=== PATIENT | female | born 1940 | race Caucasian/White ===

== ENCOUNTER → 2018-02-13 | Outpatient (CLI) | payer OTHER | LOC: CIMAGING 10:19 | PROVIDERS: ATTEND Family Medicine | DX: Z12.31 Encounter for screening mammogram for malignant neoplasm of breast (principal) ==

== ENCOUNTER 2018-08-14 16:16 | Inpatient (IN) | payer OTHER ==
[2018-08-14] MEDS ORDERED: NS 500 ML IV ONE (16:42)
[2018-08-14 16:48] LABS: PLATELET COUNT 288 10^3/uL (150-400)
--- NOTE | 2018-08-14 17:01 | EDPHY ---
H & P Stated Complaint: Syncope Time Seen by Provider: 08/14/18 16:42 HPI/ROS: CHIEF COMPLAINT: Syncope HISTORY OF PRESENT ILLNESS: 78-year-old female with CAD s/p cardiac stent presents after a syncopal episode. She was hiking just prior to arrival when she began to feel woozy and then had a witnessed syncopal episode. She struck the back of her head on the ground. Vomiting x2 after the incident. Just prior to the syncopal episode she felt more short of breath than usual, but did not have chest pain. Prior cardiac symptom was syncope. REVIEW OF SYSTEMS: complete 10 point ROS reviewed and is negative except for the noted elements in the HPI - Personal History Current Tetanus/Diphtheria Vaccine: Unsure Current Tetanus Diphtheria and Acellular Pertussis (TDAP): Unsure - Medical/Surgical History Hx Asthma: No Hx Chronic Respiratory Disease: No Hx Diabetes: No Hx Cardiac Disease: No Hx Renal Disease: No Hx Cirrhosis: No Hx Alcoholism: No Hx HIV/AIDS: No Hx Splenectomy or Spleen Trauma: No Other PMH: PMH: HTN; LUMBAR SPINAL STENOISIS;S/P HYST; Stent x1 - Social History Smoking Status: Former smoker Alcohol Use: Sober Drug Use: None Additional Social History: - Physical Exam Exam: General Appearance: Alert, pleasant Eyes: Pupils equal and round, no conjunctival pallor or injection ENT, Mouth: Mucous membranes moist Neck: Normal inspection no midlines tenderness, ROM without pain Respiratory: no chest wall tenderness, Lungs are clear to auscultation Cardiovascular: Regular rate and rhythm Gastrointestinal: Abdomen is soft and nontender Neurological: Alert, oriented x3, cranial nerves II through XII intact, motor 5 /5, sensory intact to light touch Skin: Warm and dry, no rash Extremities: Nontender, no pedal edema Psychiatric: Mood and affect normal Constitutional: Initial Vital Signs Temperature (C) 36.4 C 08/14/18 16:21 Heart Rate 73 08/14/18 16:21 Respiratory Rate 18 08/14/18 16:21 Blood Pressure 187/70 H 08/14/18 16:21 O2 Sat (%) 99 08/14/18 16:21 O2 Delivery Mode Room Air Allergies/Adverse Reactions: Horse/Equine Containing Products [Horse/Equine Product Derivatives] Allergy ( Verified 06/02/12 13:29) Penicillins Allergy (Verified 06/02/12 13:29) procaine HCl [From Novocain] Allergy (Verified 06/02/12 13:29) Sulfa (Sulfonamide Antibiotics) [Sulfa(Sulfonamide Antibiotics)] Allergy ( Verified 06/02/12 13:29) Home Medications: Medication Instructions Recorded Calcium Carb W/Vit D [Calcium Carb 1 each PO DAILY 06/01/16 W/Vit D 500/200 (*)] Multivitamins [Multivitamin (*)] 1 each PO DAILY 06/01/16 Losartan Potassium [Cozaar 50 mg 50 mg PO DAILY 06/26/16 (*)] Nebivolol HCl [Bystolic 5 mg (*)] 5 mg PO DAILY #30 tab 08/23/16 Aspirin [Aspirin 81mg (*)] 81 mg PO DAILY 08/14/18 Epinastine 0.05% [Elestat 0.05%] 1 drops EACHEYE DAILY 08/14/18 Famotidine [Pepcid 20 MG (*)] 20 mg PO DAILY 08/14/18 Furosemide [Lasix 20 MG (*)] 10 mg PO Q2D 08/14/18 Furosemide [Lasix 20 MG (*)] 20 mg PO Q2D 08/14/18 Triamcinolone Acetonide [Nasacort] 1 spray NS DAILY 08/14/18 Acetaminophen [Tylenol 325mg (*)] 650 mg PO Q6HRS PRN tab 08/16/18 Medical Decision Making - Diagnostics Imaging Results: Head CT 08/14/18 16:43 Impression: Moderate senescent features, with no acute acute abnormality identified on this unenhanced CT evaluation. If there is further clinical concern regarding the patient's symptoms, MR imaging is suggested, if not otherwise contraindicated. Findings were discussed with JOSE ALBERTO CASTANON MD at 17:11, on 08/14/2018. Imaging: Discussed imaging studies w/ at home independent call center agent Radiologist, I viewed and interpreted images myself ED Course/Re-evaluation: This patient presents with exertional syncope, concerning for ACS, especially since syncope is her anginal equivalent. Stat EKG reveals no evidence of ischemia or dysrhythmia and initial troponin is normal. CT head ordered because of fall, CHI in elderly pt. 1900: continues to have some nausea, declines nausea meds. Neuro exam remains intact. supervisor paper coating reveals NSR throughout. Results d/w pt, including CT scan, will admit for further cardiac eval. The hospitalist service was consulted for admission. Differential Diagnosis: includes though not limited to ACS, CVA, hypoglycemia, hypoxia, ICH, PE - Data Points Laboratory Results: Laboratory Results 08/14/18 16:16 08/15/18 07:25 Medications Given: Discontinued Medications Acetaminophen (Tylenol) 650 mg PO Q6HRS PRN PRN Reason: Pain, Mild/Fever, Can Take PO Stop: 02/11/19 01:01 Last Admin: 08/16/18 02:17 Dose: 650 mg Hydrocodone Bitart/Acetaminophen ([place] 5/325) 1 tab PO Q4HRS PRN PRN Reason: Pain, Moderate Able to Take PO Stop: 08/24/18 23:53 Last Admin: 08/16/18 08:04 Dose: 1 tab Aspirin (Aspirin) 81 mg PO DAILY [facility] Stop: 02/11/19 08:59 Last Admin: 08/16/18 08:06 Dose: 81 mg Aspirin Buffered (Aspirin Ec) 325 mg PO ONCALL ONE Stop: 08/15/18 15:33 Last Admin: 08/15/18 18:25 Dose: Not Given Bacitracin (Bacitracin 1000 Ml Irrigation) 50,000 units IRR ONCALL ONE Stop: 08/15/18 15:33 Last Admin: 08/15/18 18:26 Dose: Not Given Calcium/Vitamin D (Calcium Carb W/Vit D) 500 mg PO DAILY [facility] Stop: 02/11/19 08:59 Last Admin: 08/16/18 08:06 Dose: 500 mg Diazepam (Valium) 5 mg PO ONCALL ONE Stop: 08/15/18 15:33 Last Admin: 08/15/18 18:26 Dose: Not Given Diphenhydramine HCl (Benadryl) 25 mg PO ONCALL ONE Stop: 08/15/18 15:33 Last Admin: 08/15/18 18:26 Dose: Not Given Epinastine HCl (Elestat 0.05%) 1 drops EACHEYE DAILY [facility] Stop: 02/11/19 08:59 Last Admin: 08/16/18 08:09 Dose: 1 drop Famotidine (Pepcid) 20 mg PO DAILY DARRYN Stop: 02/11/19 08:59 Last Admin: 08/16/18 08:06 Dose: 20 mg Famotidine (Pepcid) 20 mg PO ONCALL ONE Stop: 08/15/18 15:33 Last Admin: 08/15/18 16:43 Dose: Not Given Fluticasone Propionate (Flonase Nasal [place]) 1 sprays EACHNARE DAILY DARRYN Stop: 02/11/19 08:59 Last Admin: 08/16/18 08:11 Dose: Not Given Furosemide (Lasix) 10 mg PO Q2D DARRYN Stop: 02/11/19 08:59 Last Admin: 08/15/18 09:58 Dose: 10 mg Furosemide (Lasix) 20 mg PO Q2D DARRYN Stop: 02/12/19 08:59 Last Admin: 08/16/18 08:06 Dose: 20 mg Sodium Chloride (Ns) 500 mls @ 1,000 mls/hr IV EDNOW ONE PRN Reason: Protocol Stop: 08/14/18 17:11 Last Admin: 08/14/18 16:49 Dose: 500 mls Sodium Chloride (Ns) 1,000 mls @ 0 mls/hr IV ONCALL ONE PRN Reason: TKO Stop: 08/15/18 15:33 Last Admin: 08/15/18 16:44 Dose: Not Given Vancomycin/Sodium Chloride (Vancomycin 1 Gm (Premix)) 250 mls @ 250 mls/hr IV ONCALL ONE Stop: 08/15/18 16:59 Last Admin: 08/15/18 18:27 Dose: Not Given Losartan Potassium (Cozaar) 50 mg PO BID DARRYN Stop: 02/10/19 23:44 Last Admin: 08/15/18 22:51 Dose: Not Given Losartan Potassium (Cozaar) 50 mg PO BID DARRYN Stop: 02/11/19 21:59 Last Admin: 08/16/18 08:05 Dose: 50 mg Multivitamins (Tab-A-Meenakshi) 1 each PO DAILY DARRYN Stop: 02/11/19 08:59 Last Admin: 08/16/18 08:06 Dose: 1 each Nebivolol (Bystolic) 5 mg PO DAILY DARRYN Stop: 02/11/19 08:59 Last Admin: 08/16/18 08:05 Dose: 5 mg Oxymetazoline HCl (Afrin Nasal [place]) 2 sprays EACHNARE BID PRN PRN Reason: CONGESTION/BLOCKED NOSE Stop: 02/11/19 21:29 Last Admin: 08/15/18 21:59 Dose: 2 puffs Point of Care Test Results: Chemistry 08/15/18 08/14/18 15:07 18:21 POC Glucose 134 mg/dL H mg/dL (70-100) POC Troponin I 0.03 ng/mL ng/mL (0.00-0.08) Departure - Departure Disposition: [facility] Inpatient Acute Clinical Impression: Syncope Qualifiers: Syncope type: unspecified Qualified Code(s): R55 - Syncope and collapse Condition: Fair
--- NOTE | 2018-08-14 19:54 | PDGENHP ---
History and Physical History and Physical: Chief complaint: passed out History of present illness: The patient is a 78yo F presented following a syncopal episode that occurred after she started hiking at [place]. She felt woozy and then passed out in front of her . She was unconscious for 2-3 minutes according to her , but when she recovered she knew where she was. She had hit her head and her tailbone during the fall. She had a similar a few years ago which resulted in workups including an abnormal stress test that led to coronary stent placement. Patient does not believe she was dehydrated or under increased stress today. Past medical history: CAD s/p stent, lumbar DJD, HTN, migraines, lisinopril, sulfa, lactose, chlorthalidone, carvedilol, bisoprolol, amlodipine, novocaine, statins. Past surgical history: CHERRY/BSO. Medications: please see med rec form. Allergies: PCN, equine products, procaine, Social history: , lives w/ . Denies smoking or drug use. Drinks 1- 2 servings of wine daily. Family history: [place] (brother 48yo, father 80yo, mother 83yo), angina, HTN, CHF, HLD, TIA, asthma, colon cancer Certified Credit Counselor - Brendan Quan APN. PCP - Adenike Lopez MD. Review of systems: 10 point review of systems was conducted and is negative except per HPI Physical exam: Vitals: Reviewed General: The patient is an elderly female who is A&Ox3 and in no acute distress. HEENT: normocephalic, extraocular movements intact, conjunctivae clear, no lesions on face or pinnae. Nares and oral mucosa pink and moist. Neck: trachea midline, no visible masses, no external lesions. No carotid bruits bilaterally. CV: +S1/S2, reg rate and rhythm. No murmurs/rubs/gallops. Resp: unlabored breathing, lungs clear to auscultation w/o rales, rhonchi, or wheezing. Abd: soft and nondistended, bowel sounds present. Nontender to palpation throughout. Musculoskeletal: Normal muscle tone and bulk. Neuro: cranial nerves II - XII grossly intact. Intact gross motor and sensory function. Psych: appropriate mood/affect. Skin: No rash or petechiae. Heme/lymph: No peripheral edema. Labs: Troponin I 0.03. Sodium 131. Glucose 113. Other Data: EKG: Rate 60, sinus rhythm, age-indeterminate anteroseptal infarct. Personally interpreted. CT of head without contrast: Moderate senescent features, with no acute abnormality identified on this unenhanced CT evaluation. Impression and plan: Syncope DDx - cardiogenic, vasovagal, neurogenic, orthostatic. Suspect cardiogenic based on Hx. CAD Sacral pain, 2/2 fall Cephalgia Mechanical fall Hyponatremia, mild -check Carotid US -check Echo. -monitor on telemetry. -Trend troponins. -check AM labs. -Consider cardiac consult or stress test in AM. -Continue aspirin. Pt does not tolerate statins. -VTE ppx - ambulatory. -Observation status.
--- NOTE | 2018-08-14 21:00 | CPEKG ---
Test Reason : OPEN Blood Pressure : / mmHG Vent. Rate : 058 BPM Atrial Rate : 058 BPM P-R Int : 233 ms QRS Dur : 102 ms QT Int : 436 ms P-R-T Axes : 075 061 060 degrees QTc Int : 429 ms Sinus rhythm Prolonged MN interval Probable anteroseptal infarct, old Confirmed by Mary Walls ([id number]) on 08/14/2018 9:00:28 PM Referred By: Confirmed By:Mary Walls
[2018-08-14] MEDS ORDERED: HYDROCODONE/APAP 5/325 TAB PO PRN (23:54)
[2018-08-14] MEDS ORDERED: ACETAMINOPHEN/ASA/CAFFEINE 1 EACH TAB PO PRN (23:54)
[2018-08-15] MEDS: LOSARTAN POTASSIUM 50 MG TAB PO SCH ×3 (00:50→22:51)
[2018-08-15] MEDS: ACETAMINOPHEN 325 MG TAB PO PRN ×2 (01:22→21:58)
[2018-08-15] MEDS ORDERED: FUROSEMIDE 20 MG TAB PO SCH (09:00)
[2018-08-15] MEDS ORDERED: LOSARTAN POTASSIUM 50 MG TAB PO SCH (09:00)
[2018-08-15] MEDS: NEBIVOLOL HCL 5 MG TAB PO SCH (09:57)
[2018-08-15] MEDS: FAMOTIDINE 20 MG TAB PO SCH (09:57)
[2018-08-15] MEDS: CALCIUM CARB W/VIT D 500 MG TAB PO SCH (09:57)
[2018-08-15] MEDS: ASPIRIN 81 MG CHEWABLE TAB PO SCH (09:57)
[2018-08-15] MEDS: MULTIVITAMINS 1 EACH TAB PO SCH (09:57)
[2018-08-15] MEDS: FLUTICASONE NASAL 120 SPRAYS/16 GM MDI EACHNARE SCH (09:58)
[2018-08-15] MEDS: EPINASTINE 0.05% 5 ML OPHT.BTL EACHEYE SCH (10:02)
--- NOTE | 2018-08-15 12:28 | GCON ---
CARDIOLOGY CONSULTATION. REFERRING PHYSICIAN: Dr. Arango PRIMARY CARE PHYSICIAN: Dr. Sandie Mejia. PRIMARY MARINA PORTER: Brendan Quan, nurse practitioner. REASON FOR CONSULTATION: We were asked by Dr. Arango to evaluate the patient for an episode of synco pe. HISTORY OF PRESENT ILLNESS: The patient is a 78-year-old female with a past medical history signific ant for CAD, status post PTCA and stenting to the LAD, dyslipidemia, intolerant of statins, hypertens ion, anxiety disorder, and degenerative disk disease. She reports she has been in her usual state of health. She has felt well. No chest pains, dyspnea, PND, orthopnea, palpitations, presyncope, or s yncope. She and her were out yesterday and had gone to [facility], and they were about to start walking up the paved road that is on an incline. She had just walked a few steps when she s tarted feeling woozy and proceeded to syncopize. She fell backwards onto her coccyx and back of her head with mild injury. She denies any loss of bowel or bladder control. She denies any antecedent p alpitations, chest pain, shortness of breath, or tunneling of vision. The episode of syncope was virgil ef, and she was oriented upon awakening. PAST MEDICAL HISTORY: 1. Anemia. 2. Anxiety disorder. 3. History of basal cell carcinoma. 4. CAD. 5. Chronic rhinitis. 6. Depression. 7. Hypertension. 8. Dyslipidemia. ALLERGIES: Amlodipine, calero peppers, bisoprolol, carvedilol, chlorthalidone, horse and equine produc t derivatives, lactose, lisinopril, Novocain, penicillins, and sulfonamides. PAST SURGICAL HISTORY: TAHBSO. SOCIAL HISTORY: Patient is , and her , [place]io, is present in the room. She reports daily alcohol intake. She is a never smoker. FAMILY HISTORY: Brother had an ND at age 48, Father at age 80, Mother at age 83. REVIEW OF SYSTEMS: As per HPI. A complete 10-point review of systems was obtained and is negative, except for what is dictated. MEDICATIONS: Outpatient medications include famotidine, aspirin, triamcinolone, Bystolic, multivitam in, losartan, furosemide q.2 days, and calcium. PHYSICAL EXAMINATION: VITAL SIGNS: Blood pressure 160/61, heart rate 54, respirations 13, O2 satura tion 96%, temp of 97.5 degrees Fahrenheit. GENERAL: She is a very pleasant female in no apparent di stress. HEENT: Head is normocephalic, atraumatic. Eyes are without scleral icterus. Mucous membra cory are moist. HEART: Regular rate and rhythm, with no rubs, gallops, or murmurs. LUNGS: Clear to auscultation. ABDOMEN: Soft, nontender, nondistended. SKIN: Warm and dry, without edema present. PSYCH: Normal mood and affect. NEURO: No focal deficits detected. LABORATORY DATA: CBC with WBC 5.04, hemoglobin 13.4, hematocrit 40.1, platelet count of 288. BMP wi th sodium 134, potassium 4.1, chloride 104, CO2 24, BUN 11, creatinine 0.6, glucose of 90. Point of care troponin was 0.03, followed by 0.046, followed by 0.032. A 12-lead ECG from 08/14/2018, leslye elizabeth interpreted shows sinus rhythm with first-degree AV block and LVH by voltage. Carotid Dopplers r eviewed show mild nonobstructive carotid disease. 08/14/2018, head CT shows moderate senescent featur es with no acute abnormalities identified. Patient is new to me. I have reviewed Brendan Quan's last notes. I have talked to Dr. Arango. I have talked to Dr. Glynn about plan of care. Telemetry reviewed, shows sinus rhythm with occasional PVCs. IMPRESSION AND PLAN: The patient is a 78-year-old female who presents for syncope. 1. Syncope. She reports this was her presenting symptom back in 2016 preceding a percutaneous coron fay intervention to her left anterior descending artery. She has no evidence of ischemia on her EKG currently. Options were reviewed with the patient, and our plan of care will be to proceed to a nucl ear treadmill stress test for further evaluation. 2. Coronary artery disease. She has normal EKG and a minimally elevated troponin that has now nury lized. 3. Hypertension. Blood pressure does not appear to be well controlled. She lists allergies to mult iple medications. Her blood pressure does not appear optimally controlled. This may be situational hypertension. We will follow further as an inpatient and then in the outpatient setting. 4. Dyslipidemia. She has listed statins as an allergy. Her last LDL was measured to be 62 on 05/21. 5. More recommendations to follow further testing. /[id number]/MODL
--- NOTE | 2018-08-15 12:42 | ASMTCMCOM ---
CM Note CM Note Notes: 08/15/2018 Case Management Note Discussed pt during rounds. Pt admitted after episode of syncope. Met w/pt. OLMOS signed. There are no case management d/c needs identified d/t pt age, marital status and independence with ADL's prior to admission. PT is recommending home independent. Case Management d/c poc: independent with follow up as directed. Case Management available if needs change. Date Signed: 08/15/2018 12:42 PM Electronically Signed By:Luz Elena Prado RN
--- NOTE | 2018-08-15 12:59 | ECHO ---
[email or web address] [address] [address] Main: [phone] Fax: [email or web address] Echocardiogram Name: ERINN YEE MR#: [id number] Study Date: 08/15/2018 Study Time: 08:38 AM Date of : 1940 Age: 78 year(s) Height: 167.6 cm (66 in.) Weight: 74.84 kg (165 lb.) BSA: 1.84 m2 Gender: Female Examination: Echo Indication: Cardiac: syncope Image Quality: Contrast: Requested by: Lisbeth Izaguirre BP: 147 mmHg/66 mmHg Heart Rate: Rhythm: Normal sinus rhythm with ectopy Indication: Cardiac: syncope Procedure Staff Well Digger: Keith Ferraro RDCS Reading Physician: Camilo Chavez MD Requesting Provider: Conclusions: Normal size left ventricle. Normal global systolic LV function. EF is 74 %. The mitral valve is normal in appearance. There is no significant mitral valve regurgitation. Aortic valve is not well visualized. Mild to moderate aortic valve regurgitation. No aortic valve stenosis is present. Right Ventricular systolic pressure is measured at 36 mmHg. No pericardial effusion. No old studies for comparison. Measurements: Chambers Valvular Assessment AV/MV Valvular Assessment TV/PV Normal Normal Normal Name Value Range Name Value Range Name Value Range Ao Lilliana (MM): 2.6 cm (2.2 cm-3.7 AV Vmax: 1.46 m/s (1 m/s-1.7 TR Vmax: 2.77 mm/s ( - ) cm) m/s) TR PGmax: 31 mmHg ( - ) IVSd (2D): 0.8 cm (0.6 cm-1.1 AV maxP mmHg ( - ) syst. PAP: 36 mmHg ( - ) cm) LVOT Vmax: 1.24 m/s (0.7 m/s-1.1 PV Vmax: 0.79 m/s (0.6 m/s-0.9 LVDd (2D): 4.8 cm (3.9 cm-5.3 m/s) m/s) cm) AR (PHT): 593 ms ( - ) PV PGmax: 2 mmHg ( - ) LVDs (2D): 2.7 cm (2.1 cm-4 MV E Vmax: 0.70 m/s ( - ) cm) MV A Vmax: 0.89 m/s ( - ) LVPWd (2D): 0.8 cm ( - ) MV E/A: 0.79 ( - ) LVEF (2D): 74 (>=54 %) Continued Measurements: Chambers Valvular Assessment AV/MV Valvular Assessment TV/PV Patient: ERINN YEE Study Date: 08/15/2018 Page 1 of 2 08:38 AM Name Value Name Value Name Value LADs Lon.6 cm MV E' Septal: 0.06 m/s CVP (est.): 5 mmHg LA Area: 17.4 cm2 MV E/E' Septal: 11.70 LA Volume: 51 ml MV E/E' Lateral: 11.50 LA Volume Index: 27.7 ml/m2 AR Vmax: 3.41 cm/s Findings: Left Ventricle: Normal size left ventricle. No LV hypertrophy. Normal global systolic LV function. EF is 74 %. No regional wall motion abnormality. Right Ventricle: Normal size right ventricle. Normal RV function. Left Atrium: The left atrium is normal in size. Right Atrium: The right atrium is normal in size. Mitral Valve: The mitral valve is normal in appearance. There is no significant mitral valve regurgitation. No mitral stenosis is present. Aortic Valve: Aortic valve is not well visualized. Mild to moderate aortic valve regurgitation. No aortic valve stenosis is present. Tricuspid Valve: The tricuspid valve appears normal. Trivial tricuspid valve regurgitation. The pulmonary artery pressure is normal. Right Ventricular systolic pressure is measured at 36 mmHg. Pulmonic Valve: The pulmonic valve is normal in appearance and function. There is no pulmonic regurgitation seen. Aorta: The aorta is normal. Pericardium: No pericardial effusion. Exam Comments: (No Signature Object) Patient: ERINN YEE Study Date: 08/15/2018 Page 2 of 2 08:38 AM [id number]
[2018-08-15] MEDS ORDERED: REGADENOSON 0.4 MG/5 ML SYR IVP ONE (14:04)
--- NOTE | 2018-08-15 15:21 | HOSPPROG ---
Hospitalist Progress Note Assessment/Plan: Impression and plan: Syncope 2/2 heart block given syncopal event during treadmill stress test today where 2:1 block was seen. CAD Sacral pain, 2/2 fall Cephalgia Mechanical fall Hyponatremia, mild - Plan for PPM placement today per Cardiology - Defer to cardiology if ischemic eval to be performed prior to PPM placement -monitor on telemetry. -Continue aspirin. Pt does not tolerate statins. -VTE ppx - ambulatory. -Pending clinical course Subjective: Patient reporting feeling well this morning. She had another syncopal event during treadmill stress test this afternoon where she went into heart block. Objective: Vital Signs Temp Pulse Resp BP Pulse Ox 36.4 C 54 L 13 162/61 H 96 08/15/18 11:16 08/15/18 11:16 08/15/18 11:16 08/15/18 11:16 08/15/18 11:16 Laboratory Results 08/15/18 07:25 08/14/18 08/15/18 08/16/18 05:59 05:59 05:59 Intake Total 1000 Output Total 2100 Balance -1100 - Physical Exam Constitutional: no apparent distress Eyes: PERRL Ears, Nose, Mouth, Throat: moist mucous membranes Cardiovascular: regular rate and rhythym Respiratory: no respiratory distress Gastrointestinal: soft, non-tender abdomen Skin: warm Neurologic: AAOx3 Psychiatric: interacting appropriately ICD10 Worksheet Patient Problems: Problems Problem Status Onset Syncope Acute Facial contusion Acute
[2018-08-15] MEDS ORDERED: DIAZEPAM 5 MG TAB PO ONE (15:32)
[2018-08-15] MEDS ORDERED: ASPIRIN EC 325 MG TAB PO ONE (15:32)
[2018-08-15] MEDS ORDERED: FAMOTIDINE 20 MG TAB PO ONE (15:32)
[2018-08-15] MEDS ORDERED: BACITRACIN IRRIGATION/NS 50,000 UNITS/1,000 ML BTL IRR ONE (15:32)
[2018-08-15] MEDS ORDERED: diphenhydrAMINE 25 MG CAP PO ONE (15:32)
[2018-08-15] MEDS ORDERED: NS 1,000 ML IV ONE (15:32)
--- NOTE | 2018-08-15 15:49 | PDPROPOC ---
Sedation Plan of Care Sedation Plan of Care: vital signs stable, mental status noted, patient educated of risks, benefits, alternatives, patient can tolerate sedation ASA Classification: ASA 2 Planned drugs: fentanyl, midazolam Mallampati Score: Class 2 Mallampati Reference Image: Patient passed 3-3-2 rule?: Yes
--- NOTE | 2018-08-15 15:50 | PDCARST ---
CAR Stress Test Results Type of Stress Test: Nuclear TM stress test- stress test aborted Indication: syncope Description of Procedure: After informed consent was obtained, pt was exercised according to Steve Protocol. Monitoring was performed with standard stress nondestructive tester electrode placement. Vital signs were monitored according to protocol throughout the procedure. STRESS EKG AND HEMODYNAMIC DATA. Exercise time: 5: 12 min. This is equivalent to: 5 METS. Resting heart rate: 59 bpm. Resting blood pressure: 120/76 mmHg. Resting O2 saturation: %. Peak heart rate: 110 bpm. This is 75 % of age predicted maximum heart rate response. Peak blood pressure: 160/80 mmHg. Exercise O2: 92 %. Reason for termination: The test was stopped due to heart block. Symptoms: syncope. STRESS TEST ANALYSIS. Baseline ECG: SR. Stress ECG: sinus with 1 mm flat STD tat went into 2:1 heart block and then sinus exit block. Blood pressure: Normal blood pressure response to exercise. Impression: IMPRESSIONS: Stress ECG equivocal for ischemia. Sinus exit block resulted in syncope for which a code was called. Patient quickly regained consciousness. Conclusion: Abnormal stress test with sinus exit block, syncope, ECG changes. Pt will proceed to [facility] and likely pacemaker to follow.
[2018-08-15] MEDS ORDERED: fentaNYL 100 MCG/2 ML INJ ONE ×2 (15:52→16:45)
[2018-08-15] MEDS ORDERED: LIDOCAINE 1% 300 MG/30 ML SDV ONE ×2 (15:52→16:45)
[2018-08-15] MEDS ORDERED: IOPAMIDOL (ISOVUE-370) 150 ML BTL IV ONE ×2 (15:53→18:28)
[2018-08-15] MEDS ORDERED: MIDAZOLAM 2 MG/2 ML VIAL ONE ×3 (15:53→17:58)
[2018-08-15] MEDS ORDERED: VANCOMYCIN HCL/NORMAL SALINE 250 ML IV ONE (16:00)
[2018-08-15 16:32] LABS: INR 0.99 (0.83-1.16); PROTIME(PATIENT) 13.3 SEC (12.0-15.0)
[2018-08-15] MEDS ORDERED: IOPAMIDOL (ISOVUE-300) 50 ML VIAL ONE (16:45)
[2018-08-15] MEDS ORDERED: LIDO/EPI 1% **for epidural** 30 ML SDV ONE (16:46)
[2018-08-15] MEDS ORDERED: BUPIVACAINE 0.5% 30 ML SDV ONE (16:46)
--- NOTE | 2018-08-15 17:14 | PDMN ---
Medical Necessity Medical necessity: [employer] [facility] [employer] M340 Syncope: 78 yo w/ initial c/o syncope. Intially OBS for workup, cardiology consulted. Stress test performed w/ abn results w/ 2: 1 heart block then sinus exit block, syncope, ECG changes. Pt will proceed with L heart cath and pacer to follow. Will require additional MN for ongoing procedures and cardiac monitoring. Meets [employer] [facility] IP criteria for syncope w/ cardiac finding resulting in prolonged tele monitoring and immediate intervention (AICD placement). Hx CAD s/p stent, HTN. Change to IP status @1616 per MD order.
[2018-08-15] MEDS ORDERED: OXYCODONE/APAP 5/325 TAB PO PRN (18:42)
[2018-08-15] MEDS ORDERED: ATROPINE SULFATE 1 MG/10 ML SYR IVP PRN (18:44)
[2018-08-15] MEDS ORDERED: NITROGLYCERIN 0.4 MG BTL SL PRN (18:44)
[2018-08-15] MEDS ORDERED: OXYMETAZOLINE 30 ML NASAL SPRAY EACHNARE PRN (21:30)
[2018-08-15] MEDS: LOSARTAN POTASSIUM 25 MG TAB PO SCH (21:57)
[2018-08-16] MEDS: ACETAMINOPHEN 325 MG TAB PO PRN (02:17)
--- NOTE | 2018-08-16 05:28 | CPIP ---
DATE OF PROCEDURE: 08/15/2018 PROCEDURES: 1. Coronary angiography. 2. Left ventriculography. INDICATION: 1. Known coronary artery disease, status post stenting of left anterior descending coronary artery. 2. Syncope. 3. Abnormal stress test. ACCESS: Patient was prepped and draped in sterile fashion. 1% lidocaine was used to anesthetize the right inguinal region. A 6-Czech introducer sheath was placed selectively into the right common fe moral artery via modified Seldinger technique. A 5-Czech introducer sheath was placed selectively i nto the right common femoral vein via modified Seldinger technique. CORONARY ANGIOGRAPHY: A 6-Czech JL4 was advanced to the left main coronary artery and images obtain ed. The left main coronary artery was short and gave rise to the left anterior descending coronary a rtery and the circumflex coronary artery. The left main coronary artery appeared normal. The left a nterior descending coronary artery gave rise to 1 prominent diagonal branch as well as several smalle r diagonal branches. The left anterior descending coronary artery was previously stented in the mid segment. The previously placed stent was widely patent with mild in-stent restenosis. The circumfle x coronary artery was a large-sized vessel. The circumflex coronary artery gave rise to 2 OM branche s. The circumflex coronary artery and its OM branches appeared free of any significant disease. A 6 -Czech JR4 was advanced to the right coronary artery and images obtained. The right coronary artery was dominant. The right coronary artery appeared normal. LEFT VENTRICULOGRAPHY: A 6-Czech pigtail catheter was advanced in the left ventricle and images obt ained. The left ventricle was normal in size. Left ventricular systolic function appeared to be nor mal. However, imaging was suboptimal secondary to hand injection. The left ventricular end-diastoli c pressure was mildly elevated at 18 mmHg. TEMPORARY PACEMAKER PLACEMENT: A temporary pacemaker was placed via the right common femoral vein. The temporary pacemaker was advanced into the right ventricle and capture obtained. The temporary pa cemaker was set at a rate of 40 beats per minute. COMPLICATIONS: None. CONCLUSIONS: 1. Patent left anterior descending stent. 2. Mild coronary artery disease without flow limitation. 3. Status post successful placement of a temporary pacemaker. /[id number]/MODL
--- NOTE | 2018-08-16 06:24 | CPIP ---
DATE OF PROCEDURE: 08/15/2018 INDICATIONS: The patient is a pleasant 78-year-old female admitted with syncope. She had a stress t est during which she developed complete heart block associated with syncope. PROCEDURE: Implantation of a dual-chamber pacemaker. TECHNIQUE: Following informed consent and in the fasting state and after administration of prophylac tic antibiotics, the patient was brought to the cardiac catheterization laboratory. The left chest w as prepped and draped in usual sterile fashion. 2% lidocaine was infiltrated in the skin below the l eft clavicle. A 3 cm incision was made in the skin. This was carried down to the prepectoral fascia where a pacemaker pocket was fashioned. A venogram was performed, identifying a widely patent axill fay subclavian vein. Using the modified Seldinger technique, access was gained to the axillary vein at the level of the first rib. This was performed a 2nd time and two 0.035 J-wires were positioned i n the axillary vein and visualized across the midline into the superior vena cava. Using the first o f these wires, a 6-Yoruba SafeSheath was placed. The right ventricular lead was brought to the field and under fluoroscopy, positioned well within the right ventricular apex. The lead was screwed into place and the sheath torn away. Capture and sensing were tested and was noted to be excellent. The lead was subsequently secured to the pacemaker pocket floor using 0 Ethibond. Using the remaining s heaths, the atrial lead was brought to the field. Under fluoroscopy, this was passed to the right at [facility]. The lead was positioned in the right atrial appendage and screwed into place. The lead was te sted with excellent capture and sensing. The sheath was then torn away and the lead secured to the p acemaker pocket floor using 0 Ethibond. At this point, the pocket was inspected. All bleeders were cauterized. The pocket was irrigated with antibiotic-containing solution. The device was brought to the field. Both leads were identified by serial number and affixed to the header according to manuf acturer guidelines. The device and the redundant portions of both leads were then placed in the pock et. The pocket was then closed in 3 layers initially using 2 layers of interrupted suture with 2-0 a nd 3-0 Vicryl, and finally running 4-0 Vicryl for the skin. Steri-Strips and a dry dressing were alonzo lied. DEVICE INFORMATION: The pacemaker is a Biotronik Edora 8 DR-T model number [id number], serial #[id number]. The atrial lead is a Biotronik Solia S45, model number 680475, serial #[id number]. Ventricular lead is a Biotronik Solia S53, model number 034253, serial #[id number]. In the atrium capture was 1 V at 0.4 millisecond with lead impedance of 448 ohms, and P-wave sensed a t 3.9 mV. In the ventricle, sensed R-waves were 12.1 mV with capture 0.6 V at 0.4 msec. The impedan ce of 702 ohms. COMPLICATIONS: None. DISPOSITION: The patient will be transferred back to her room on telemetry. Her care will be contin ued per her primary team. /[id number]/MODL
[2018-08-16 07:17] VITALS: BP 179/77
[2018-08-16] MEDS: LOSARTAN POTASSIUM 25 MG TAB PO SCH (08:05)
[2018-08-16] MEDS: NEBIVOLOL HCL 5 MG TAB PO SCH (08:05)
[2018-08-16] MEDS: ASPIRIN 81 MG CHEWABLE TAB PO SCH (08:06)
[2018-08-16] MEDS: MULTIVITAMINS 1 EACH TAB PO SCH (08:06)
[2018-08-16] MEDS: FAMOTIDINE 20 MG TAB PO SCH (08:06)
[2018-08-16] MEDS: CALCIUM CARB W/VIT D 500 MG TAB PO SCH (08:06)
[2018-08-16] MEDS: EPINASTINE 0.05% 5 ML OPHT.BTL EACHEYE SCH (08:09)
[2018-08-16] MEDS: FLUTICASONE NASAL 120 SPRAYS/16 GM MDI EACHNARE SCH (08:11)
[2018-08-16] MEDS ORDERED: FUROSEMIDE 20 MG TAB PO SCH (09:00)
--- NOTE | 2018-08-16 12:44 | ASDISCHSUM ---
Discharge Information Plan Status:Home with No Needs Medically Cleared to Leave:08/15/2018 Discharge Date:08/16/2018 11:53 AM CM D/C Disposition:Home, Routine, Self-Care ADT D/C Disposition:Home, Routine, Self-Care Projected Discharge Date:08/16/2018 11:53 AM Transportation at D/C: Discharge Delay Reason: Follow-Up Date:08/16/2018 11:53 AM Discharge Slot: Final Diagnosis: Placement Information Patient Contact Information Contact Name:JEANNIE Relationship: Address:[address] [place] [address] City:[facility] Phone: [facility] Code:[place] [address] Email: Financial Information Financial Class:Medicare Primary Plan Desc:MEDICARE OUTPATIENT Primary Plan Number:[id number] Secondary Plan Desc: [employer] CLAIMS Secondary Plan Number:[id number] Assessment Information LACE LACE Length of stay for Answers: Less than 1 day current admission Acuity / Level of Answers: Yes Care: Did the patient have an inpatient admission? Comorbidities - select Answers: Coronary Artery Disease all that apply # of Emergency department Answers: 1-2 visits in the last 6 months Score: 6 Date Signed: 08/16/2018 12:42 PM Electronically Signed By:Luz Elena Prado RN [facility] CM Progress Note CM Note CM Note Notes: 08/15/2018 Case Management Note Discussed pt during rounds. Pt admitted after episode of syncope. Met w/ptOlena OLMOS signed. There are no case management d/c needs identified d/t pt age, marital status and independence with ADL's prior to admission. PT is recommending home independent. Case Management d/c poc: independent with follow up as directed. Case Management available if needs change. Date Signed: 08/15/2018 12:42 PM Electronically Signed By:Luz Elena Prado RN Case Management Discharge Plan Note Case Management Discharge Discharge Order Complete? Answers: Yes Patient to Obtain Answers: via Family Medications Transportation Arranged Answers: Family/Friends Discharge Comments Notes: Pt to discharge independent with follow up as directed. Date Signed: 08/16/2018 12:43 PM Electronically Signed By:Luz Elena Prado RN Intervention Information Intervention Type:No Admission Order Date of Service:08/15/2018 09:51 AM Patient Type:Observation Staff Member:Sridevi Brock Hours: Discipline: Severity: Comment:Dmitriy Intervention Type:*OLMOS-Signed Date of Service:08/15/2018 12:26 PM Patient Type:Observation Staff Member:HAYES Prado Hillary Hours: Discipline: Severity: Comment:
--- NOTE | 2018-08-16 14:02 | PDDCSUM ---
Discharge Summary Discharge Summary: Date of Admission: 08/15/2018 Date of Discharge: 08/16/2018 Consults: Cardiology Procedures: Treadmill Stress Test, LHC, PPM Placement Followup: PCP, Cardiology Hospital Course Problem List: Syncope - Patient had repeat syncopal event during treadmill stress test where 2:1 block was seen. CAD Sacral pain, 2/2 fall Cephalgia Mechanical fall Hyponatremia, mild - S/p PPM placement on 08/15 - LHC performed prior to PPM placement which showed patent LAD, mild CAD -Continue aspirin. Pt does not tolerate statins. Time spent on discharge was >35 minutes with >50% of time spent on patient education and counseling.
--- NOTE | 2018-08-17 06:18 | CPEKG ---
Test Reason : OPEN Blood Pressure : / mmHG Vent. Rate : 062 BPM Atrial Rate : 063 BPM P-R Int : 240 ms QRS Dur : 098 ms QT Int : 430 ms P-R-T Axes : 081 054 053 degrees QTc Int : 437 ms Sinus rhythm Prolonged OK interval Anteroseptal infarct Confirmed by Filippo Bhakta ([id number]) on 08/17/2018 6:17:32 AM Referred By: Confirmed By:Filippo Bhakta
--- NOTE | 2018-08-17 10:45 | GDS ---
ADMIT DIAGNOSES: 1. Syncope. 2. Known coronary artery disease. DISCHARGE DIAGNOSES: 1. Syncope. 2. Placement of permanent pacemaker for 3rd degree heart block. 3. Coronary artery disease with past percutaneous coronary intervention of the left anterior descend ing. COURSE OF HOSPITALIZATION: This nice lady came through the emergency room after having a syncopal ep isode at home. She was worked up for syncope, having known coronary artery disease. She was set up for cardiac nuclear stress test. Unfortunately, during the test she went into third-degree heart blo ck and syncope. She was then taken to the cardiac laborer livestock where no obstructive disease was found. A temporary pacemaker was placed. Dr. Emmanuel Glynn then intervened and implanted a permanent pacemak er with no complications. She has been up and ambulating and feels much better this morning. She lucas s had no chest pain, shortness of breath or syncopal episodes. Her pacemaker site is intact with no bleeding. She does have some reddened area right below the incision site. There is no drainage. Dorian pandya did have tenderness through the night and was given analgesics, which did help. This morning she h as taken Tylenol, and this is sufficient for pain relief. Her pacemaker was checked this morning and is functioning properly. Additionally, she had a chest x-ray done that showed small bilateral effus ions. Otherwise, pacer wires were in place appropriately. At this time, she is stable for discharge. ALLERGIES: She is allergic to penicillins. MEDICATIONS: She will go home on multivitamin 1 tablet daily, calcium with vitamin D 1 tablet daily, Cozaar 50 mg daily, Bystolic 5 mg daily, Nasacort spray 1 spray each naris daily, Lasix 20 mg every 2 days, Lasix 10 mg every other day, aspirin 81 mg daily, Elestat 0.05% eyedrops 1 drop each eye doretha y, Pepcid 20 mg daily, Tylenol 325 mg 1-2 tablets every 6 hours as needed for pain not to exceed 3000 mg daily. PHYSICAL EXAMINATION: VITAL SIGNS: On day of discharge, blood pressure 170/66, heart rate 63, tempe rature 36.7. Pacemaker is functioning normal. CARDIAC: Heart rate is regular. No murmurs, rubs, gallops. CHEST: Lungs sounds are clear to auscultation. No wheezes, rales, or rhonchi. EXTREMITIES: No peripheral edema. The pacemaker site in left pectoral area is intact with no bleedi ng. She does have mild tenderness at this site. Groin site is intact with no bleeding or tenderness . INVESTIGATIONS DONE DURING THIS VISIT: 08/23/2018, head CT: Reason for testing, she syncopized and hit the back of her head. Test done to rule out acute intracranial abnormality. Impression: Moderate senescent features with no acute abnormality identified. Carotid Doppler bilateral study done on 08/23/2018, impression: 1. No evidence of flow-limiting carotid stenosis. 2. Velocities correlate to less than 50% diameter stenosis of the origin of the right internal carot id artery. 3. Velocities correlate to less than 50% diameter stenosis of the origin of the left internal caroti d artery. 4. Bilateral vertebrals arteries were patent with antegrade flow. Echocardiogram: Echocardiogram done on 08/23/2018, conclusion: 1. Normal size left ventricle. 2. Normal global systolic LV function. 3. EF 74%. 4. Mitral valve normal in appearance. No significant mitral valve regurgitation. 5. Aortic valve not well visualized. 6. Mild to moderate aortic valve regurgitation with no aortic valve stenosis. 7. Right ventricular systolic pressure is measured at 36 mmHg. 8. No pericardial effusion. Myocardial perfusion study 08/15/2018: 1. Resting study was done without incident. 2. The patient passed out on the treadmill and was taken to the cardiovascular lab for pacemaker selena cement. 3. No stress imaging was obtained. 08/15/2018, coronary angiography indication: 1. Known coronary artery disease status post stenting of the left anterior descending coronary arter y. 2. Syncope. 3. Abnormal nuclear abnormal stress test. Conclusion of angiogram: 1. Patent left anterior descending stent. 2. Mild coronary artery disease without flow limitation. 3. Status post successful placement of temporary place maker for third-degree block. 08/15/2018, procedure implantation of dual-chamber pacemaker by Dr. Emmanuel Glynn. Reason for placeme nt third-degree heart block with syncope. Dual-chamber pacemaker was placed successfully with no complications. Device information: 1. Biotron[employer]ting [employer] Wheels Edora 8 DDR-T, model number 140559, serial number [id number]. 2. Atrial lead is Biotronik Solia S45, model number 210000, serial number [id number]. 3. Ventricular lead is Biotronik Solia S53, model number [id number], serial number [id number]. 4. There were no complications. Chest x-ray 08/16/2018 shows: 1. Excellent pacer placement. 2. Small bilateral pleural effusions consistent with fluid overloading noted yesterday. At this time, the patient is stable for discharge. Her pacemaker was checked this morning and functi oning appropriately. Her incision site is intact with no bleeding, induration and with mild discomfo rt. Post cardiac angiogram instructions were given. Her groin sites are intact with no bleeding indurati on or pain. She will follow up cardiac angiogram written instructions. She is to continue to participate in cardiac rehab. Post pacemaker instructions were given verbally and written instructions provided. She will follow u p in clinic in 1 week for pacemaker check and wound check. The office will call with appointments. She does have an appointment with Dr. Chavez in [place] on September 08, 2018. At this time, she cur rently is stable for discharge. /[id number]/MODL
== END 2018-08-16 11:53 | disposition home or self-care (01) | DRG 243 ==
LOC: EDUNIT# → EDBD → F2W 21:24 → OBSVTOIN 08-15 16:16
PROVIDERS: ADMIT Internal Medicine; ATTEND Internal Medicine
DX: I44.2 Atrioventricular block, complete (principal); I25.10 Atherosclerotic heart disease of native coronary artery without angina pectoris; M53.3 Sacrococcygeal disorders, not elsewhere classified; W19.XXXA Unspecified fall, initial encounter; E87.1 Hypo-osmolality and hyponatremia; I10 Essential (primary) hypertension; E78.5 Hyperlipidemia, unspecified; F41.9 Anxiety disorder, unspecified; M51.9 Unspecified thoracic, thoracolumbar and lumbosacral intervertebral disc disorder; Z95.5 Presence of coronary angioplasty implant and graft
CPT/HCPCS: 84484-ER; 97116-GP; 97161-GP; 97165-GO; A9500; C1760; C1785; C1898; G8978-GP-CH; G8979-GP-CH; G8980-GP-CH; G8987-GO-CI; G8988-GO-CI; G8989-GO-CI; J2250; J2785; J3010; J3370; Q9967

== ENCOUNTER → 2018-09-23 | Outpatient (CLI) | payer OTHER | LOC: BHFA 14:45 | PROVIDERS: ATTEND Internal Medicine Interventional Cardiology | DX: I31.3 Pericardial effusion (noninflammatory) (principal) ==